=== PATIENT | male | born 1955 | race Caucasian/White ===

== ENCOUNTER 2017-11-06 06:18 | Day surgery (SDC) | payer BC ==
--- NOTE | 2017-11-05 15:47 | RAD REPORT ---
EXAM DESCRIPTION: RAD - Chest Pa And Lat (2 Views) - 11/05/2017 3:43 pm CLINICAL HISTORY: Preop, abdominal pain COMPARISON: None. FINDINGS: The lungs are clear. The heart is normal in size. No displaced fractures. IMPRESSION: No acute or concerning finding suspected.
[2017-11-05 17:02] LABS: Absolute Lymphocytes (CBC) 1.2 K/uL (0.7-4.9); Absolute Monocytes 0.7 K/uL (0.1-1.3); Absolute Neutrophil 3.4 K/uL (1.8-8.0); Basophils % 0.6 % (0-1.3); Eosinophils % 1.9 % (0-4.4); Hematocrit 39.7 % (39.6-49.0); MCH 34.1 pg (27.0-35.0); MCV 99.1 fL (80-100); MPV 11.2 fL (7.6-11.3); Monocytes % 12.8 % (3.3-12.3); RBC Red Blood Cell Count 4.01 M/uL (4.33-5.43)
[2017-11-05 17:06] LABS: Potassium 4.2 mEq/L (3.6-5.0)
--- NOTE | 2017-11-06 06:56 | EKG ---
Test Date: 2017-11-05 Test Time: 15:37:13 Senior Mechanical Project Engineer: [place] MEASUREMENT RESULTS: Intervals: Rate: 72 IL: 170 QRSD: 80 QT: 408 QTc: 446 [place]: P: 75 IL: 170 QRS: 10 T: 27 INTERPRETIVE STATEMENTS: Normal sinus rhythm Normal ECG No previous ECG available for comparison Electronically Signed On 11-06-17 06:54:36 CDT by Anders Candelaria
[2017-11-06] MEDS ORDERED: Ringers Lactate 1,000 ML IV ONE (07:10)
[2017-11-06 07:17] LABS: MPV 11.2 fL (7.6-11.3)
[2017-11-06] MEDS ORDERED: CEFAZOLIN/SWI 1gm 1 GM/10 ML SYR ONE (07:28)
[2017-11-06 07:33] LABS: Platelet Estimate DECR
[2017-11-06] MEDS ORDERED: MIDAZOLAM HCL 2 MG/2 ML INJ ONE (07:40)
[2017-11-06] MEDS ORDERED: ONDANSETRON 4 MG/2 ML VIAL ONE (07:40)
[2017-11-06] MEDS ORDERED: PROPOFOL 200 MG/20 ML VIAL IV ONE (07:40)
[2017-11-06] MEDS ORDERED: LIDOCAINE 2% MPF 5 ML VIAL ONE (07:40)
[2017-11-06] MEDS ORDERED: FENTANYL CITR 100 MCG/2 ML ONE (07:40)
[2017-11-06] MEDS ORDERED: ROCURONIUM 50 MG/5 ML VIAL IV ONE (07:40)
[2017-11-06] MEDS ORDERED: NEOSTIGMINE 1 MG/ML -5 ML SYRINGE ONE (08:40)
[2017-11-06] MEDS ORDERED: GLYCOPYRROLATE 0.2 MG/ML SYR ONE (08:40)
--- NOTE | 2017-11-06 08:41 | P.BOP ---
Preoperative diagnosis: bilateral inguinal hernias Postoperative diagnosis: same Primary procedure: 1. Laparoscpic repair with mesh of right inguinal hernia Secondary procedure: 2. Laparoscpic repair with mesh of left inguinal hernia Plastic Maker: TANI DURÁN Estimated blood loss: <10cc Specimen: none Findings: as above Anesthesia: General Drain(s): Other Transferred to: Recovery Room Condition: Good
[2017-11-06] MEDS ORDERED: CODEINE 30MG/APAP 300MG TAB ONE (10:00)
--- NOTE | 2017-11-08 19:28 | OP ---
Date of Procedure: 11/06/2017 Surgeon: Killian Lou MD [employer] Operator: Ashely Welch. Diagnosis: Bilateral inguinal hernias. Postoperative Diagnosis: Same. Procedures: 1.Laparoscopic repair of right inguinal hernia with mesh. 2.Laparoscopic repair of left inguinal hernia with mesh. Estimated Blood Loss: Less than 10 cc. Specimen: None. Anesthesia: General plus local. Indications: This is a case of a 62-year-old patient, comes to us with above diagnosis. Fully expla ined the benefits, the benefits, alternatives, and risks of laparoscopic, possible open bilateral ing uinal hernia repair, which include, but not limited to infection, bleeding, damage to adjacent struct ures, anesthesia complications, chronic pain, chronic numbness, bladder injuries, vascular injuries, nerve injuries, osteitis, NC, and even . He also understands this may not relieve the symptoms. He might need more than one surgical intervention. He also understands the pros and cons of mesh p lacement and he was allowed to ask questions and they were answered to his satisfaction. Description Of Procedure: The patient was brought to the operating room, placed in supine position. A time-out was called. Anesthesia was done without complication. Bilateral inguinal and abdomen re gions were was prepped and draped in a sterile fashion. The patient was placed in and in Trendelenburg position. An incision was made in the infraumbilical region. Incision was carried down until we find the anterior rectus sheath, opened, and retracted la terally to expose the posterior rectus sheath. The extraperitoneal space was further developed with blunt dissection. After that, we placed a balloon-tipped Spacemaker trocar and directed towards the pubic symphysis and inflated under direct visualization with a laparoscoped placed on it. After that , we did remove the balloon. We inflated the extraperitoneal space. Another 5-mm trocar was placed just above the pubic symphysis and another one fpc between the first and the second one. The pre peritoneal space was developed by exposing the inferior epigastric vessels and keeping them anterior. Zander's ligament was dissected laterally to a junction with the iliac veins. Dissection was sury nued laterally and inferiorly to the iliopubic tract with note to avoid damaging the femoral branch o f the genitofemoral nerve and lateral femoral cutaneous nerve. The cord structures were carefully sk eletonized. The hernia sac was identified and reduced by gentle traction into the peritoneal space. At that moment, we proceeded to go to the opposite side and we proceeded to have the same findings a nd the same dissection on the opposite side until we find the hernia once again, the hernia sac once again, removing it gently from the spermatic cord structures and reducing back into the perineal cavi ty. We selected 3D mesh, left and right. We proceeded to place the mesh passing through the trocar site and put in that in the working space. The mesh was placed to cover direct and indirect spaces. The mesh was tacked with SorbaFix laterally and superior to the iliopubic tract and inferomedial to the Zander's ligament. The same was done in the opposite side. No bleeding. At that moment, I proc eeded to spray some local anesthetic and then carefully removed the trocars under direct visualizatio n and closed the anterior rectus sheath by using #1 Vicryl and then the skin was approximated. Spong e count and instrument counts were correct. The patient tolerated the procedure well. The patient w as sent to recovery in stable condition. Disposition: Home. Activity: As tolerated. No heavy lifting. Followup: Follow up in my office in 1 week. Call for appointment [phone]. Keep area dry for 48 ho urs, then may shower. Medications: See orders. HUNTER/BELTRAN Voice ID: [id number] Report ID: [id number]
== END 2017-11-06 11:45 | disposition home or self-care (01) ==
LOC: OR 06:18
PROVIDERS: ATTEND Surgery
PROC: 0YUA4JZ Supplement Bilateral Inguinal Region with Synthetic Substitute, Percutaneous Endoscopic Approach (ICD-10-PCS; principal; 2017-11-06 07:30)
DX: K40.20 Bilateral inguinal hernia, without obstruction or gangrene, not specified as recurrent (principal)
CPT/HCPCS: 36415; 71046; 80048; 85025; 85049; 93005; J0690; J2250; J2405; J2710; J3010